=== PATIENT | male | born 1935 | race Caucasian/White ===

== ENCOUNTER 2017-02-22 19:57 | Inpatient (IN) | payer MEDICARE, BC ==
[~2017-02-22] VITALS: Ht 185.4 cm; Wt 78.6 kg
[~2017-02-22 19:57] MED LIST: ALLOPURINOL100 MG PO; AMLODIPINE BES2.5 MG PO; ASPIRIN EC325 MG PO; ASPIRIN EC81 MG PO; CARVEDILOL12.5 MG PO; CIPRO500 MG PO; COLACE100 MG PO; CRESTOR40 MG PO; FLOMAX0.4 MG PO; FLOVENT HFA12 G1 INH; FLOVENT HFA12 GM INH; GABAPENTIN300 MG PO; IMDUR60 MG PO; ISOSORBIDE MONO30 MG PO; LEVOTHYROXINE50 MCG PO; METFORMIN HCL1000 MG PO; METFORMIN HCL500 MG PO; METHOCARBAMOL500 MG PO; NIASPAN500 MG PO; NITROSTAT0.4 MG SL; NORCO 5-325 TA1 EACH PO; OMEPRAZOLE20 MG PO; OXYCODON-ACETA1 EAC2 PO; PERCOCET 5-3251 EACH PO; PROMETHAZINE HC25 M1 PO; RANITIDINE HCL150 MG PO; TAMSULOSIN HCL0.4 MG PO; TRAMADOL HCL50 MG PO; TRAZODONE HCL100 MG PO; VENTOLIN HFA18 GM INH; ZOFRAN ODT4 MG PO
[2017-02-22] MEDS ORDERED: LEVOFLOXACIN750 MG PO (20:19)
[2017-02-22] MEDS ORDERED: REGLAN10 MG PO (20:19)
[2017-02-22] MEDS ORDERED: NIASPAN500 MG PO (20:20)
[2017-02-22] MEDS ORDERED: CRESTOR40 MG NG (20:20)
[2017-02-22] MEDS ORDERED: ISOSORBIDE DINI30 MG PO (20:20)
--- NOTE | 2017-02-23 01:31 | NUR ---
PATIENT ARRIVES TO CCU VIA STRETCHER FROM ER AROUND 2330, WITH FOUR FAMILY MEMBERS ACCOMPANYING PATIENT. PT MOVED OVER TO CCU. PT NOTED TO HAVE BRUISING ON EVERY EXTREMITY AND ALSO HAS BLEEDING FROM AN IV SITE THAT WAS D/C IN LEFT AC. 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 PT HAS A 24 G IN RIGHT HAND UPON ADMISSION. PT HAS WALDEN CATHETER WHICH HAS MININAL CONCENTRATED, URINE PRESENT. PT IS HYPOTENSIVE WITH A BLOOD PRESSURE OF 90/40 (52). HEART RATE ALSO ELEVATED AROUND 110-120s. FAMILY CONCERNED ABOUT PT'S OVERALL STATUS.
--- NOTE | 2017-02-23 01:37 | NUR ---
NEW IV STARTED IN LEFT UPPER ARM WITH ULTRASOUND. PATIENT TOLERATED WELL. BOLUS OF NS GOING THROUGH THIS IV. PATIENT'S FAMILY H LEFT EXCEPT HIS ALICE, WHO REMAINS AT BEDSIDE. PT IS VERY CONCERNED ABOUT HAVING TO VOID, AND CONTINUALLY STATING THAT HE NEEDS TO VOID. DR. AREVALO UPDATED ON CT SCAN RESULTS.
--- NOTE | 2017-02-23 02:18 | NUR ---
DR. AREVALO CALLED AND NOTIFIED OF PATIENT'S LOW BLOOD PRESSURES. ORDER TO GIVE 500 ML NORMAL SALINE BOLUS OVER 1 HOUR REC'D AND STARTED. PT CONTINUES TO BE AWAKE IN ROOM AND STATING HE NEEDS TO VOID. PT'S WALDEN DRAINING MINIMAL URINE. PT'S ASLEEP ON COUCH.
--- NOTE | 2017-02-23 03:27 | NUR ---
PT NOTED TO BE DROPPING SPO2 DOWN TO 88% ON 2 L. PT TURNED UP TO 3 L. PT FINALLY RESTING MORE COMFORTABLY IN BED. CONTINUE TO MONITOR.
--- NOTE | 2017-02-23 08:21 | NUR ---
MEDICATED FOR PAIN AT THIS TIME, DR AREVALO TALKING WITH REGARDING COMFORT CARE.
--- NOTE | 2017-02-23 09:30 | NUR ---
HAD FAMILY MEETING REGARDING PTS CARE AND CONDITION. DR AREVALO LEAD THE MEETING AND PT'S , TWO DAUGHTERS AND ONE SON IN THE ROOM AND THE OTHER SON WAS ON THE PHONE. ALL QUESTIONS WERE ANSWERED AT THIS TIME AND SPITURAL CARE WAS NOTIFIED TO COME AND SEE FAMILY AND PT. CRIPPLE CUTTER YOSELIN LOTT AND FATHER YASMANI WAS NOTIFIED.
--- NOTE | 2017-02-23 10:58 | NUR ---
PT MEDICATED FOR PAIN PO AND A FENTANYL PATCH PLACED ON PT LEFT SHOULDER AT THIS TIME. PT ALSO WAS TURNED TO HIS RIGHT SIDE AT THIS TIME. FOLY CATHETER DRAING SADE IN COLOR URINE AND HAS PUTOUT ABOUT 5MLS SO FAR THIS MORNING.
--- NOTE | 2017-02-23 12:48 | NUR ---
ORAL CARE GIVEN AT THIS TIME AND THEN PT WAS TRANSPORTED VIA BED TO ROOM 116. ALL PERSONAL BELONGS AND FAMILY AWARE OF THE MOVE. ALL MEDICATIONS AND CHART SENT WITH HIM ALSO.
--- NOTE | 2017-02-23 13:34 | NUR ---
PATIENT TO ROOM, ORIENTED TO CALL LIGHT. FAMILY AT BEDSIDE. PATIENT APPEARS RESTLESS, WANTING TO BE TURNED BACK AND FORTH. PATIENT STATES " THE PAIN MEDS ARE WEARING OFF" SON STATES " IF HE IS HURTING LETS GET HIM SOMETHING FOR PAIN" PREPARED 10 MG OF ORAL SUSPENSION OXYCODONE PATIENT BROUGHT TO ROOM, PATIENT STATES " I DON'T WANT THAT". SON STATES " IF HE DOESN'T WANT IT HE DOESN'T NEED IT, AND HE CALLS THE SHOTS" REASSURED FAMILY THAT PATIENT IS ON COMFORT CARE, WHEN PATIENT NEEDS PAIN MEDICATION WILL PROVIDE.
--- NOTE | 2017-02-23 14:00 | NUR ---
PASTOR WYATT IN ROOM, ANSWERED QUESITONS AND CONCERNS WITH . ADMINSITERED 10MG OF OXYCODONE SUSPENSION FOR PAIN CONTROL. PATIENT TOLERATED WELL. NO EMESIS OR URPING. DRINKING WATER WELL.
--- NOTE | 2017-02-23 14:18 | NUR ---
PT WAS IN PAIN, FAMILY WAS MEETING WITH DR AREVALO. FOLLOWING, PT MOVED TO MED/SURG 116. MET AGAIN WITH FAMILY AND PT. HE WAS THIRSTY, GOT HIM SOME WATER AND RN ESCOBAR CAME AND GAVE HIM SOME PAIN MEDS. SHE EXPLAINED PAIN MANAGEMENT TO THEM, AND DID A GREAT JOB ANSWERING THEIR QUESTIONS. PT LET ME PRAY FOR HIM. YASMANI HAD BEEN IN EARLIER AT THEIR REQUEST. VISITED WITH OTHER FAMILY- SON ADAM AND SON IN LAW DONNA. ADAM STRUGGLING WITH THE PAIN HIS DAD IS IN, AND I EXPLAINED THAT THE MEASURES HE IS IN NOW SHOULD HELP VERY QUICKLY. THE PAIN HAD GOTTEN AWAY BECAUSE OF CONFUSION ON THE FAMILYS' PART. THE PLAN IS TO TAKE PT HOME TONIGHT OR TOMORROW. GOD BLESS THEM
--- NOTE | 2017-02-23 14:20 | NUR ---
PT IS RESTING IN BED SAFELY AND COMFORTABLY. PT DID NOT NEED ANYTHING AT THE MOMENT
--- NOTE | 2017-02-23 16:31 | NUR ---
PATIENT AWAKE, COMPLAINING OF PAIN IN BLADDER. STATES " IT HURTS IN A BAD WAY" AND PLACES HANDS ON STOMACH. PATIENT'S CONCERNED DITROPAN IS NOT WORKING. DISCUSSED MEDICATION WITH PATIENT AND NOTIFIED DR. AREVALO OF COMPLAINTS OF PAIN AND HAVING TO MEDICATE PATIENT Q1HR WITH [address] AREVALO VERBALIZED WILL MAKE CHANGES TO ORDERS.
--- NOTE | 2017-02-23 17:45 | NUR ---
EXPRESSED CONCERN OF REMOVING WALDEN CATHETER, DISCUSSED WITH DR. AREVALO. OKAY TO LEAVE WALDEN CATH AT THIS TIME. PAIN BETTER CONTROLLED WITH 20MG OF OXYCODONE, PATIENT RESTING WITH EYES CLOSED. RESPONDS TO STIMULI. DOES NOT APPEAR TO BE HAVING THE BLADDER SPASMS. URINE OUTPUT SCANT. PATIENT REPOSITIONED, HOWEVER WILL ALSO REPOSITION SELF WITH FAMILY WHEN STAFF NOT IN ROOM. ORAL CARE PROVIDED. PATIENT VERBALIZES NO PAIN AT THIS TIME.
--- NOTE | 2017-02-23 20:00 | NUR ---
RECEIVED REPORT AT 1900. FOUND PT IN BED RESTING COMORTABLY WITH FAMILY AT BEDSIDE.
--- NOTE | 2017-02-23 22:00 | NUR ---
PT SO FAR RECEIVED NO MEDICATION FOR COMFORT, PT IS RESTING SO FAR. FAMILY AT BEDSIDE. HIS WANTS HIM TO STAY HERE ON COMFORT CARE AND DOES NOT WANT TO TAKE HIM HOME WITH HOSPICE CARE. MD AREVALO INFORMED. EARLY INTERVENTION SPECIALIST INFORMED.
--- NOTE | 2017-02-23 22:51 | NUR ---
RECIEVED REPORT AT 1900. FOUND PT IN BED COMFORTABLY RESTING WITH AND CHILDREN BY HIS BEDSIDE.
--- NOTE | 2017-02-24 | NUR ---
PT IS RESTING COMFORTABLY
--- NOTE | 2017-02-24 02:42 | NUR ---
PT IS RESTING. NO AGITATION NOTED. IS SLEEPING WELL.
--- NOTE | 2017-02-24 04:19 | NUR ---
PT IS SLEEPING COMFORTABLY.
--- NOTE | 2017-02-24 05:15 | NUR ---
PT HAD A RESTFUL NIGHT. PT ONLY REQUIRED ONE DOSE OF PO OXY. PT REFUSED SUCTIONING AND ORAL CARE EARLIER THIS SHIFT. WILL TRY AGAIN IN A LITTLE WHILE. IS AT BEDSIDE SLEEPING WELL. RR AT THIS TIME ARE >12.
--- NOTE | 2017-02-24 07:55 | NUR ---
REPORT RECIEVED FROM MARISEL WEBER. PT JUST HAD ORAL CARE AND SUCTION. SUCTION ON WALL SWITCHED NOW WORKING. LABORATORY SAMPLE CARRIER WILL ORDER NEW HOSPICE TRAY FOR FAMILY.
--- NOTE | 2017-02-24 10:47 | NUR ---
PT GOWN AND BEDDING CHANGED HE HAD BLED ON THEM A LITTLE. PT OPENED EYES WHEN TURNED BUT REMAINED NON VERBAL. AND DAUGHTER IN ROOM. APPEARS MORE RELAXED AFTER MORNING DOSE OF ATROPINE DROPS AND LIQ OXY. RESP HAVE SLOWED TO APPROX 6-8. HOSPICE TRAY YET TO ARRIVE FOR FAMILY.
--- NOTE | 2017-02-24 12:17 | NUR ---
TALKED TO FAMILY ABOUT PT STAYING IN HOSPITAL THEY THINK HE WILL PASS SHORTLY AND DONT THINK HE WOULD MAKE IT HOME. RR STILL 6-8.
--- NOTE | 2017-02-24 14:00 | NUR ---
FAMILY CALLED TO SAY THEY THINK PT HAD PASSED. ASSESSED PT AND CALLED DR AREVALO TO ASSESS. WAS CALLED AT 1350. FAMILY WISHES TO HAVE SOME TIME. SENIOR DIRECTOR INSIGHT AND PASTORAL CARE CALLED.
--- NOTE | 2017-02-24 17:01 | NUR ---
SLITTER SERVICE AND SETTER WAS CALLED IN FOR PT . FAMILY WAS PRESENT AT TIME OF VISIT. FAMILY WAS GRIEVING APPROPRIATELY BUT WANTED MORE TIME WITH THE PT'S BODY. PT'S FAMILY STATED THAT PT HAD NO INTEREST IN TISSUE OR ORGAN DONATION. FAMILY LEFT BEFORE BODY WAS PICKED UP BECAUSE THEY DIDN'T WANT TO SEE THAT. [facility] WAS NOTIFIED AND PICKED UP THE BODY. FAMILY DID NOT WANT TO BE CALLED BY THE HOME TODAY, THIS WAS PASSED ALONG TO THE HOME. SLITTER SERVICE AND SETTER PRAYED WITH FAMILY AT TIME OF VISIT.
== END 2017-02-24 13:50 | disposition home or self-care (01) | DRG 682 ==
LOC: ED 19:57 → CCU 23:05 → MS 02-23 12:50
PROVIDERS: ADMIT Internal Medicine
DX: N17.0 Acute kidney failure with tubular necrosis (principal); G93.41 Metabolic encephalopathy; E87.2 Acidosis; R65.10 Systemic inflammatory response syndrome (SIRS) of non-infectious origin without acute organ dysfunction; D46.A Refractory cytopenia with multilineage dysplasia; Z51.5 Encounter for palliative care; K52.9 Noninfective gastroenteritis and colitis, unspecified; E86.0 Dehydration; I25.10 Atherosclerotic heart disease of native coronary artery without angina pectoris; J45.909 Unspecified asthma, uncomplicated; E11.9 Type 2 diabetes mellitus without complications; E03.9 Hypothyroidism, unspecified; I12.9 Hypertensive chronic kidney disease with stage 1 through stage 4 chronic kidney disease, or unspecified chronic kidney disease; N18.3 Chronic kidney disease, stage 3 (moderate); G89.29 Other chronic pain; Z87.442 Personal history of urinary calculi; Z95.5 Presence of coronary angioplasty implant and graft; Z88.0 Allergy status to penicillin; Z88.5 Allergy status to narcotic agent; Z88.8 Allergy status to other drugs, medicaments and biological substances; Z74.01 Bed confinement status; Z79.84 Long term (current) use of oral hypoglycemic drugs
CPT/HCPCS: 36415; 71010; 74176; 80053; 81001; 82570; 84300; 85025; 86850; 86900; 86901; J2405; J7030; J7040